=== PATIENT | male | born 1980 | race Caucasian/White ===

== ENCOUNTER 2016-08-27 20:34 | Emergency (ER) | payer BC ==
[2016-08-27] MEDS ORDERED: HYDROcodone/APAP 5-325MG 1 EACH TAB PO STA (21:30)
--- NOTE | 2016-08-27 22:02 | CT ---
EXAMINATION TYPE: CT brain wo con DATE OF EXAM: 08/27/2016 COMPARISON: NONE HISTORY: HEAD INJURY FROM BASEBALL. CT DLP: 961 mGycm. Automated Exposure Control for Dose Reduction was Utilized. TECHNIQUE: CT scan of the head is performed without contrast. FINDINGS: There is no acute intracranial hemorrhage, mass effect, or midline shift identified. The ventricles and sulci are within normal limits in size. The globes are intact and the visualized sin uses are clear. Cerebellar tonsils extend through the foramen magnum. Soft tissue swelling over the f rontal region. IMPRESSION: No acute intracranial hemorrhage, mass effect, or midline shift is seen. Inferior cerebe llar tonsillar ectopia may be present but is incompletely evaluated, brain MRI could be performed for additional evaluation.
--- NOTE | 2016-08-27 22:04 | CT ---
EXAMINATION TYPE: CT facial bones wo con DATE OF EXAM: 08/27/2016 COMPARISON: CT brain same date HISTORY: HEAD INJURY FROM BASEBALL CT DLP: 648. mGycm Automated exposure control for dose reduction was used. TECHNIQUE: CT scan of the sinuses is performed without contrast, axial images are obtained, coronal r eformatted images are also reviewed. FINDINGS: The paranasal sinuses including the frontal, ethmoid, sphenoid, and maxillary sinuses bila terally are well-aerated without abnormal opacification. The ostiomeatal complex is patent bilateral ly on the coronal images. Visualized portion of mastoid air cells show no abnormal opacification. The globes are intact bilate rally. Soft tissue swelling is noted over the frontal region as noted on CT. IMPRESSION: The sinuses are clear and the ostiomeatal complex is patent bilaterally. No acute fractur e or dislocation.
--- NOTE | 2016-08-27 22:09 | ED ---
Head Injury HPI - General Chief complaint: Head Injury Stated complaint: Head Injury Time Seen by Provider: 08/27/16 21:14 Source: patient Mode of arrival: ambulatory Limitations: no limitations - History of Present Illness Initial comments: Patient is a 35-year-old male who presents with a chief complaint of a head injury. Patient was hit in the face with a softball while playing in a game. He states that the ball was thrown to home plate, bounced off of another player' s helmet, and hit him in the forehead between the eyes. Patient states that he did not lose consciousness. He remembers the entire event. Currently he is complaining of a headache, and facial pain. Patient cannot describe any aggravating or alleviating factors. Timing is constant. Patient denies lightheadedness, dizziness, visual changes, pain with movement of the eyes, nasal hemorrhage, trouble breathing. MD Complaint: head injury, head pain Onset/Timin -: hour(s) Mechanism of Injury: sports related injury (Hit in the face with a softball) Location: frontal Loss of Consciousness: no Previous Trauma to this Area: No Place: outdoors Radiation: none Severity: moderate Quality: aching Consistency: constant Provoking factors: none known Other Injuries: none Associated Symptoms: denies other symptoms - Related Data Home Medications Medication Instructions Recorded Confirmed Dextroamphetamine/Amphetamine 20 mg PO BID 08/27/16 08/27/16 [Adderall] Previous Rx's Medication Instructions Recorded HYDROcodone/APAP 5-325MG [[place] 1 tab PO Q4HR PRN #5 tab 08/27/16 5-325] Naproxen 500 mg PO TID PRN #20 tablet 08/27/16 Allergies/Adverse reactions: Allergies Allergy/AdvReac Type Severity Reaction Status Date / Time No Known Allergies Allergy Verified 08/27/16 20:47 Review of Systems ROS Statement: Those systems with pertinent positive or pertinent negative responses have been documented in the HPI. Patient denies dizziness, lightheadedness, visual changes, pain with extraocular movement, jaw pain, pain with movement of the jaw, shortness of breath, chest pain, abdominal pain, nausea, vomiting, loss of consciousness, dysuria, constipation, diarrhea ROS Other: All systems not noted in ROS Statement are negative. Past Medical History Additional Past Medical History / Comment(s): pilonidal cyst History of Any Multi-Drug Resistant Organisms: None Reported Past Surgical History: Orthopedic Surgery Additional Past Surgical History / Comment(s): knee surgery, pilonidal cyst Past Psychological History: No Psychological Hx Reported Smoking Status: Current every day smoker Past Alcohol Use History: None Reported Past Drug Use History: None Reported General Exam Limitations: no limitations General appearance: alert, in no apparent distress Head exam: Present: other (Patient has erythema and swelling between the eyes extending to the nasal bridge. There are no gross deformities. There are no lacerations or abrasions. Patient is moderately tender to palpation at the bridge of the nose. There is no proptosis, or pain with extraocular movement.) ENT exam: Present: normal oropharynx, mucous membranes moist, TM's normal bilaterally, normal external ear exam, other (There is no septal hematoma, or otorrhea) Neck exam: Present: normal inspection Respiratory exam: Present: normal lung sounds bilaterally Cardiovascular Exam: Present: regular rate, normal rhythm GI/Abdominal exam: Present: soft Rectal exam: Present: deferred Extremities exam: Present: normal inspection, full ROM Back exam: Present: normal inspection Neurological exam: Present: alert, oriented X3 Psychiatric exam: Present: normal affect, normal mood Skin exam: Present: warm, dry, intact Course Vital Signs 08/27/16 20:36 Temperature 98.7 F Pulse Rate 84 Respiratory 18 Rate Blood Pressure 127/70 O2 Sat by Pulse 98 Oximetry Medical Decision Making - Medical Decision Making Patient presents with a chief complaint of a head injury after getting hit in the face with a softball during a softball game. Patient denies loss of consciousness, and remembers the entire event. The patient does not have any gross deformities of the face or nose. He does not have any pain with extraocular movement. There is no otorrhea, brown sign, or septal hematoma. Tympanic membranes appear to be normal. Patient will have a CT of the head, and facial bones. Patient was given one [place] for pain control and the emergency department. 10:[address] evaluation of the head and facial bones do not show any acute process. There is no focal hemorrhage, or mass effect. Facial bones appear to be intact. There is some soft tissue edema over the frontal bones consistent with exam. On reexamination, patient remained stable. Vital signs are within normal limits. Patient's neurologic exam is unchanged. The was prescribed naproxen, and 5 [place] tablets for pain control. He was instructed to not operate machinery, or drive if he is going to take the [place]. Patient was offered a work note however he declined at this time. Patient is stable for discharge. She was instructed on signs and symptoms that should be concerning and prompted return to the emergency department. He has stated understanding. Patient is instructed to follow-up with primary care in 3 to 5 days. Disposition Clinical Impression: Closed head injury, Concussion without loss of consciousness Disposition: HOME SELF-CARE Condition: Good Instructions: Concussion (ED) Prescriptions: HYDROcodone/APAP 5-325MG [[place] 5-325] 1 tab PO Q4HR PRN #5 tab PRN Reason: Pain Naproxen 500 mg PO TID PRN #20 tablet PRN Reason: Pain Referrals: Juan Gardiner DO [Primary Care Provider] - 1-2 days
[2016-08-27 22:50] VITALS: BP 123/59; PULSE 97; RESP 14; TEMP 98.3
== END 2016-08-27 22:50 | disposition home or self-care (01) ==
LOC: EC 20:34
DX: S06.0X0A Concussion without loss of consciousness, initial encounter (principal); F17.200 Nicotine dependence, unspecified, uncomplicated; Z79.899 Other long term (current) drug therapy; W21.07XA Struck by softball, initial encounter; Y93.64 Activity, baseball; Y92.89 Other specified places as the place of occurrence of the external cause
CPT/HCPCS: 70450; 70486; 99283

== ENCOUNTER → 2016-11-26 | Outpatient (CLI) | payer BC | LOC: RADMRIMAIN 18:20 | PROVIDERS: ATTEND Family Medicine | DX: Z53.9 Procedure and treatment not carried out, unspecified reason (principal) ==

== ENCOUNTER 2016-12-09 21:58 | Emergency (ER) | payer BC ==
[2016-12-09 22:14] VITALS: TEMP 97.7
[2016-12-09] MEDS ORDERED: KETOROLAC 30 MG/ML 1 ML VIAL IVP STA (22:49)
[2016-12-09] MEDS ORDERED: SODIUM CHLORIDE 0.9% 1,000 ML IV STA ×2 (22:49)
[2016-12-09] MEDS ORDERED: FAMOTIDINE 20 MG/2 ML VIAL IV STA (22:50)
--- NOTE | 2016-12-09 22:53 | ED ---
Abdominal Pain HPI - General Chief Complaint: Abdominal Pain Stated Complaint: Abd Pain Time Seen by Provider: 12/09/16 22:36 Source: patient, family, RN notes reviewed Mode of arrival: ambulatory Limitations: no limitations - History of Present Illness Initial Comments: This is a 36-year-old male with a benign past medical history states she's had midepigastric pain for over a week. He states it squeezing in nature currently is 6/10 but when he tries to swallow food gets up 8/10. He's had nausea with it no overt vomiting no diarrhea he's had no fevers chills sweats no cough or difficulty breathing. Of note he does have a family history of a mother and sister who have had gallbladder disease with cholecystectomy. He has a prior procedure. He is not a drinker of alcohol does not consume large was a coffee or tea he does drink soda pop. The patient patient does state he does a lot of lifting at work lifting 70 pound items. 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 MD Complaint: abdominal pain - Related Data Home Medications Medication Instructions Recorded Confirmed Dextroamphetamine/Amphetamine 20 mg PO BID 08/27/16 12/09/16 [Adderall] HYDROcodone/IBUPROFEN 7.5-200 1 tab PO BID PRN 12/09/16 12/09/16 [Vicoprofen 7.5-200 mg] Previous Rx's Medication Instructions Recorded Diclofenac Sodium/Misoprostol 1 each PO AC-TID #20 tab.ir.dr 12/10/16 [Arthrotec 75 mg-200 Mcg Tab] Allergies Allergy/AdvReac Type Severity Reaction Status Date / Time No Known Allergies Allergy Verified 12/09/16 22:49 Review of Systems ROS Statement: Those systems with pertinent positive or pertinent negative responses have been documented in the HPI. ROS Other: All systems not noted in ROS Statement are negative. Past Medical History Additional Past Medical History / Comment(s): pilonidal cyst History of Any Multi-Drug Resistant Organisms: None Reported Past Surgical History: Orthopedic Surgery Additional Past Surgical History / Comment(s): knee surgery, pilonidal cyst Past Psychological History: No Psychological Hx Reported Smoking Status: Current every day smoker Past Alcohol Use History: None Reported Past Drug Use History: None Reported General Exam - General Exam Comments Initial Comments: This is a well-developed well-nourished awake alert oriented 3 male Limitations: no limitations General appearance: alert, in no apparent distress Head exam: Present: atraumatic, normocephalic, normal inspection Eye exam: Present: normal appearance, PERRL, EOMI. Absent: scleral icterus, conjunctival injection, periorbital swelling ENT exam: Present: normal exam, mucous membranes moist Neck exam: Present: normal inspection. Absent: tenderness, meningismus, lymphadenopathy Respiratory exam: Present: normal lung sounds bilaterally, chest wall tenderness (Tenderness palpation over the xiphoid.). Absent: respiratory distress, wheezes, rales, rhonchi, stridor Cardiovascular Exam: Present: regular rate, normal rhythm, normal heart sounds. Absent: systolic murmur, diastolic murmur, rubs, gallop, clicks GI/Abdominal exam: Present: soft, tenderness, normal bowel sounds. Absent: distended, guarding, rebound, rigid, bruit (Epigastric tenderness palpation no overt guarding or rebound. Some mild right upper quadrant tenderness palpation no McBurney point tenderness), pulsatile mass, hernia, other Rectal exam: Present: deferred Extremities exam: Present: normal inspection, full ROM, normal capillary refill. Absent: tenderness, pedal edema, joint swelling, calf tenderness Back exam: Present: normal inspection Neurological exam: Present: alert, oriented X3, CN II-XII intact Psychiatric exam: Present: normal affect, normal mood Skin exam: Present: warm, dry, intact, normal color. Absent: rash Course Vital Signs 12/09/16 12/09/16 12/10/16 22:11 23:15 00:05 Temperature 97.7 F Pulse Rate 67 70 70 Respiratory 16 18 18 Rate Blood Pressure 119/63 121/60 119/72 O2 Sat by Pulse 99 99 99 Oximetry Medical Decision Making - Medical Decision Making Patient did get relief of some of the discomfort after the GI cocktail. He still had xiphoid discomfort. He did receive IV dye a lot of which should help with pain. I did a long discussion with him and his regarding findings patient will be discharged with follow-up with his doctor return when necessary he was given a note for work. The presentation is consistent with both gastritis and xiphodynia - Lab Data Result diagrams: 12/09/16 23:05 12/09/16 23:05 Lab Results 12/09/16 12/09/16 12/09/16 Range/Units 23:05 23:05 23:05 WBC 9.9 (3.8-10.6) k/uL RBC 4.28 L (4.30-5.90) m/uL Hgb 14.4 (13.0-17.5) gm/dL Hct 42.0 (39.0-53.0) % MCV 98.2 (80.0-100.0) fL MCH 33.8 (25.0-35.0) pg MCHC 34.4 (31.0-37.0) g/dL RDW 12.4 (11.5-15.5) % Plt Count 250 (150-450) k/uL Neutrophils % 64 % Lymphocytes % 26 % Monocytes % 5 % Eosinophils % 3 % Basophils % 1 % Neutrophils # 6.4 (1.3-7.7) k/uL Lymphocytes # 2.6 (1.0-4.8) k/uL Monocytes # 0.5 (0-1.0) k/uL Eosinophils # 0.2 (0-0.7) k/uL Basophils # 0.1 (0-0.2) k/uL Sodium 141 (137-145) mmol/L Potassium 3.9 (3.5-5.1) mmol/L Chloride 105 (98-107) mmol/L Carbon Dioxide 25 (22-30) mmol/L Anion Gap 11 mmol/L BUN 12 (9-20) mg/dL Creatinine 0.70 (0.66-1.25) mg/dL Est GFR (MDRD) Af Amer >60 (>60 ml/min/1.73 sqM) Est GFR (MDRD) Non-Af >60 (>60 ml/min/1.73 sqM) Glucose 106 H (74-99) mg/dL Plasma Lactic Acid Guerrero 1.5 (0.7-2.0) mmol/L Calcium 9.4 (8.4-10.2) mg/dL Total Bilirubin 0.4 (0.2-1.3) mg/dL AST 28 (17-59) U/L ALT 36 (21-72) U/L Alkaline Phosphatase 80 (38-126) U/L Total Protein 7.3 (6.3-8.2) g/dL Albumin 4.3 (3.5-5.0) g/dL Amylase 49 (30-110) U/L Lipase 82 (23-300) U/L Urine Color Urine Appearance (Clear) Urine pH (5.0-8.0) Ur Specific [place] (1.001-1.035) Urine Protein (Negative) Urine Glucose (UA) (Negative) Urine Ketones (Negative) Urine Blood (Negative) Urine Nitrite (Negative) Urine Bilirubin (Negative) Urine Urobilinogen (<2.0) mg/dL Ur Leukocyte Esterase (Negative) 12/09/16 Range/Units 23:20 WBC (3.8-10.6) k/uL RBC (4.30-5.90) m/uL Hgb (13.0-17.5) gm/dL Hct (39.0-53.0) % MCV (80.0-100.0) fL MCH (25.0-35.0) pg MCHC (31.0-37.0) g/dL RDW (11.5-15.5) % Plt Count (150-450) k/uL Neutrophils % % Lymphocytes % % Monocytes % % Eosinophils % % Basophils % % Neutrophils # (1.3-7.7) k/uL Lymphocytes # (1.0-4.8) k/uL Monocytes # (0-1.0) k/uL Eosinophils # (0-0.7) k/uL Basophils # (0-0.2) k/uL Sodium (137-145) mmol/L Potassium (3.5-5.1) mmol/L Chloride (98-107) mmol/L Carbon Dioxide (22-30) mmol/L Anion Gap mmol/L BUN (9-20) mg/dL Creatinine (0.66-1.25) mg/dL Est GFR (MDRD) Af Amer (>60 ml/min/1.73 sqM) Est GFR (MDRD) Non-Af (>60 ml/min/1.73 sqM) Glucose (74-99) mg/dL Plasma Lactic Acid Guerrero (0.7-2.0) mmol/L Calcium (8.4-10.2) mg/dL Total Bilirubin (0.2-1.3) mg/dL AST (17-59) U/L ALT (21-72) U/L Alkaline Phosphatase (38-126) U/L Total Protein (6.3-8.2) g/dL Albumin (3.5-5.0) g/dL Amylase (30-110) U/L Lipase (23-300) U/L Urine Color Yellow Urine Appearance Clear (Clear) Urine pH 5.5 (5.0-8.0) Ur Specific [place] 1.008 (1.001-1.035) Urine Protein Negative (Negative) Urine Glucose (UA) Negative (Negative) Urine Ketones Negative (Negative) Urine Blood Negative (Negative) Urine Nitrite Negative (Negative) Urine Bilirubin Negative (Negative) Urine Urobilinogen <2.0 (<2.0) mg/dL Ur Leukocyte Esterase Negative (Negative) - Radiology Data Radiology results: report reviewed, image reviewed (I did review the imaging and reports no acute findings.) Disposition Clinical Impression: Gastritis, Xiphodynia Disposition: HOME SELF-CARE Condition: Good Instructions: Gastritis (ED), Chest Wall Pain (ED) Prescriptions: Diclofenac Sodium/Misoprostol [Arthrotec 75 mg-200 Mcg Tab] 1 each PO AC-TID # 20 tab.ir.dr Referrals: Juan Gardiner DO [Primary Care Provider] - 1-2 days
[2016-12-09 23:19] LABS: CHCM 35.2; HGB 14.4 gm/dL (13.0-17.5)
[2016-12-09 23:34] LABS: ALT 36 U/L (21-72); AST 28 U/L (17-59); Alkaline Phosphatase 80 U/L (38-126); Amylase 49 U/L (30-110); Anion Gap 11 mmol/L; Blood Urea Nitrogen 12 mg/dL (9-20); Calcium 9.4 mg/dL (8.4-10.2); Carbon Dioxide 25 mmol/L (22-30); Chloride 105 mmol/L (98-107); Glucose 106 mg/dL (74-99); Non-African American GFR(MDRD) >60 (>60 ml/min/1.73 sqM); Potassium 3.9 mmol/L (3.5-5.1); Sodium 141 mmol/L (137-145); Total Bilirubin 0.4 mg/dL (0.2-1.3); Total Protein 7.3 g/dL (6.3-8.2)
[2016-12-09 23:48] LABS: Appearance,Urine Clear (Clear); Bilirubin,Urine Negative (Negative); Glucose,Urine (UA) Negative (Negative); Ketones,Urine Negative (Negative); Leukocyte Esterase,Urine Negative (Negative); Nitrite,Urine Negative (Negative); PH, Urine 5.5 (5.0-8.0); Protein,Urine Negative (Negative); Specific Gravity,Urine 1.008 (1.001-1.035); UA Billing (MACRO vs. MICRO) CHEM; Urobilinogen,Urine <2.0 mg/dL (<2.0)
[2016-12-09 23:50] LABS: Basophils # (A) 0.1 k/uL (0-0.2); Basophils % (A) 1 %; CH 34.4; Eosinophils # (A) 0.2 k/uL (0-0.7); Eosinophils % (A) 3 %; HDW 2.41; Luc # (Auto) 0.12; Luc % (Auto) 1; Lymphocytes # (A) 2.6 k/uL (1.0-4.8); Lymphocytes % (A) 26 %; MCH 33.8 pg (25.0-35.0); MCHC 34.4 g/dL (31.0-37.0); MCV 98.2 fL (80.0-100.0); Mean Platelet Volume 7.8; Monocytes # (A) 0.5 k/uL (0-1.0); Monocytes % (A) 5 %; Neutrophils # (A) 6.4 k/uL (1.3-7.7); Neutrophils % (A) 64 %; RBC 4.28 m/uL (4.30-5.90); RDW 12.4 % (11.5-15.5); WBC 9.9 k/uL (3.8-10.6); WBC (Perox) 10.14
--- NOTE | 2016-12-09 23:59 | XR ---
EXAMINATION TYPE: XR chest 2V DATE OF EXAM: 12/09/2016 COMPARISON: 04/01/2011 HISTORY: Chest pain TECHNIQUE: Frontal and lateral views of the chest are obtained. FINDINGS: Heart and mediastinum are normal. Lungs are clear. Diaphragm is normal. Bony thorax is int act. Pulmonary vascularity is normal. IMPRESSION: Normal chest. No change.
--- NOTE | 2016-12-10 | XR ---
EXAMINATION TYPE: XR abdomen 2V DATE OF EXAM: 12/09/2016 COMPARISON: 03/07/2012 HISTORY: Abdominal pain TECHNIQUE: 2 views FINDINGS: Bowel gas pattern is normal. There is no sign of intestinal obstruction or pneumoperitoneum . Fecal pattern is normal. There is no sign of a mass. IMPRESSION: Nonacute abdomen. No change.
[2016-12-10] MEDS ORDERED: MAG HYDROX/AL HYDROX/SIMETH 30 ML, HYOSCYAMINE ELIXIR 10 ML, CIMETIDINE HCL 300 MG, LID... PO STA ×4 (00:05)
[2016-12-10] MEDS ORDERED: HYDROmorphone 1 MG/ML 1 ML SYRINGE IVP STA (00:59)
[2016-12-10 01:59] VITALS: BP 115/56; PULSE 56; RESP 16
== END 2016-12-10 01:59 | disposition home or self-care (01) ==
LOC: EC 21:58
DX: K29.70 Gastritis, unspecified, without bleeding (principal); M85.88 Other specified disorders of bone density and structure, other site; F17.200 Nicotine dependence, unspecified, uncomplicated; Z79.899 Other long term (current) drug therapy
CPT/HCPCS: 36415; 80053; 82150; 83605; 83690; 85025; 81003; 71020; 74020; 99284; 96374; 96375 ×2; 96361 ×2; J1885; J1170

== ENCOUNTER 2017-09-27 20:36 | Emergency (ER) | payer BC ==
[2017-09-27 20:55] VITALS: RESP 18
--- NOTE | 2017-09-27 21:08 | ED ---
General Adult HPI - General Chief complaint: Chest Pain Stated complaint: Chest burning Time Seen by Provider: 09/27/17 21:00 Source: patient Mode of arrival: ambulatory Limitations: no limitations - History of Present Illness Initial comments: 36-year-old male presenting to the ED with 2-3 week history of epigastric and retrosternal discomfort after eating. Patient reports that after eating he has epigastric burning as well as a feeling of food coming back up into his esophagus. Patient reports at times he can feel the food and taste in the back of his throat. He denies any nausea or vomiting patient reports he does while eating soft foods such as yogurt or applesauce however anything solid he eats makes his symptoms worse. When the symptoms occur nothing makes it better aside from waiting for it to pass. Symptoms are not associated with any chest pressure, exertional symptoms, shortness of breath, diaphoresis or lightheadedness. He does have a history of GERD and was previously on PPIs intermittently but does report he hasn't been taking them regularly. He has never seen a director of planning or had an upper GI series. He is occur every day smoker. He has no known cardiac or known family history of early cardiac disease. Patient denies fevers, chills, nausea, vomiting, exertional chest pain, shortness of breath, change in bowel or bladder habits. He hasn't weighed himself but states that he doesn't believe he has lost weight due to not eating. - Related Data Home Medications Medication Instructions Recorded Confirmed Dextroamphetamine/Amphetamine 20 mg PO BID 08/27/16 12/09/16 [Adderall] HYDROcodone/IBUPROFEN 7.5-200 1 tab PO BID PRN 12/09/16 12/09/16 [Vicoprofen 7.5-200 mg] Previous Rx's Medication Instructions Recorded Diclofenac Sodium/Misoprostol 1 each PO AC-TID #20 tab.ir. 12/10/16 [Arthrotec 75 mg-200 Mcg Tab] Pantoprazole [Protonix] 40 mg PO DAILY #30 tablet. 09/27/17 Allergies Allergy/AdvReac Type Severity Reaction Status Date / Time No Known Allergies Allergy Verified 09/27/17 20:55 Review of Systems ROS Statement: Those systems with pertinent positive or pertinent negative responses have been documented in the HPI. ROS Other: All systems not noted in ROS Statement are negative. Past Medical History Additional Past Medical History / Comment(s): pilonidal cyst History of Any Multi-Drug Resistant Organisms: None Reported Past Surgical History: Orthopedic Surgery Additional Past Surgical History / Comment(s): knee surgery, pilonidal cyst Past Psychological History: No Psychological Hx Reported Smoking Status: Current every day smoker Past Alcohol Use History: None Reported Past Drug Use History: None Reported General Exam Limitations: no limitations General appearance: alert, in no apparent distress Head exam: Present: atraumatic, normocephalic Eye exam: Present: normal appearance, PERRL ENT exam: Present: normal exam, mucous membranes moist, other (No abnormality noted in the mouth, no evidence of candidiasis or infection. No aphthous ulcers or mucosal abnormalities noted.) Neck exam: Present: normal inspection Respiratory exam: Present: normal lung sounds bilaterally. Absent: respiratory distress, wheezes, rales, chest wall tenderness, accessory muscle use Cardiovascular Exam: Present: regular rate, normal rhythm, normal heart sounds. Absent: systolic murmur, diastolic murmur GI/Abdominal exam: Present: soft, normal bowel sounds. Absent: distended, tenderness, guarding, rebound, rigid, pulsatile mass Rectal exam: Present: deferred Extremities exam: Present: normal inspection Back exam: Present: normal inspection, full ROM Neurological exam: Present: alert, oriented X3 Psychiatric exam: Present: normal affect, normal mood Skin exam: Present: warm, dry, intact Course Vital Signs 09/27/17 09/27/17 20:53 22:52 Temperature 98.2 F 97.9 F Pulse Rate 89 75 Respiratory 18 18 Rate Blood Pressure 152/82 115/64 O2 Sat by Pulse 98 99 Oximetry - Reevaluation(s) Reevaluation #1: resting, was updated on findings. Had an extensive discussion regarding the need to follow up with gastroenterology. 09/27/17 22:40 EKG Findings - EKG Comments: EKG Findings:: EKG obtained at 2115 - rate is 84, rhythm is sinus, axis, normal intervals, AK 142, QRS 92, QTc 446, there are no acute ST elevations or depressions. There is no evidence of acute ischemia or infarction. Medical Decision Making - Medical Decision Making 36-year-old male with no cardiac history presenting with 2-3 weeks of burning epigastric pain and regurgitation after eating Patient able to tolerate solids and liquids though his symptoms are exacerbated by solid foods. No symptoms concerning for cardiac etiology of complaint, however I will obtain an EKG chest x-ray and basic labs GI cocktail ordered EKG was sinus rhythm with no acute ST elevations or depressions no evidence of acute ischemia or infarction Chest x-ray was unremarkable Labs and imaging were unremarkable, patient reported no improvement with GI cocktail and states that it made him feel that he could taste the vomiting is now more At this time I feel the patient suffering from very severe acid reflux. I discussed dietary modifications. Including eating small meals, sitting up after meals, not drinking too much fluids with meals. Avoidance of alcohol, spicy or greasy foods. Also advised patient that he needs to start a PPI and take it daily not as needed and follow-up with PCP and gastroenterology. Patient was given a referral to gastroenterology. All questions pertaining care were answered best my ability patient was discharged home in stable condition. - Lab Data Result diagrams: 09/27/17 21:05 09/27/17 21:05 Lab Results 09/27/17 09/27/17 09/27/17 Range/Units 21:05 21:05 21:05 WBC 11.9 H (3.8-10.6) k/uL RBC 4.36 (4.30-5.90) m/uL Hgb 14.1 (13.0-17.5) gm/dL Hct 41.4 (39.0-53.0) % MCV 95.1 (80.0-100.0) fL MCH 32.4 (25.0-35.0) pg MCHC 34.1 (31.0-37.0) g/dL RDW 12.0 (11.5-15.5) % Plt Count 265 (150-450) k/uL Neutrophils % 57 % Lymphocytes % 30 % Monocytes % 7 % Eosinophils % 3 % Basophils % 1 % Neutrophils # 6.8 (1.3-7.7) k/uL Lymphocytes # 3.6 (1.0-4.8) k/uL Monocytes # 0.8 (0-1.0) k/uL Eosinophils # 0.3 (0-0.7) k/uL Basophils # 0.1 (0-0.2) k/uL PT 10.2 (9.0-12.0) sec INR 1.0 (<1.2) APTT 26.1 (22.0-30.0) sec Sodium 140 (137-145) mmol/L Potassium 4.1 (3.5-5.1) mmol/L Chloride 105 (98-107) mmol/L Carbon Dioxide 27 (22-30) mmol/L Anion Gap 8 mmol/L BUN 11 (9-20) mg/dL Creatinine 0.90 (0.66-1.25) mg/dL Est GFR (CKD-EPI)AfAm >90 (>60 ml/min/1.73 sqM) Est GFR (CKD-EPI)NonAf >90 (>60 ml/min/1.73 sqM) Glucose 90 (74-99) mg/dL Calcium 9.3 (8.4-10.2) mg/dL Magnesium 2.2 (1.6-2.3) mg/dL Total Bilirubin 0.4 (0.2-1.3) mg/dL AST 28 (17-59) U/L ALT 32 (21-72) U/L Alkaline Phosphatase 77 (38-126) U/L Troponin I (0.000-0.034) ng/mL Total Protein 7.0 (6.3-8.2) g/dL Albumin 4.3 (3.5-5.0) g/dL Lipase 60 (23-300) U/L 09/27/17 Range/Units 21:05 WBC (3.8-10.6) k/uL RBC (4.30-5.90) m/uL Hgb (13.0-17.5) gm/dL Hct (39.0-53.0) % MCV (80.0-100.0) fL MCH (25.0-35.0) pg MCHC (31.0-37.0) g/dL RDW (11.5-15.5) % Plt Count (150-450) k/uL Neutrophils % % Lymphocytes % % Monocytes % % Eosinophils % % Basophils % % Neutrophils # (1.3-7.7) k/uL Lymphocytes # (1.0-4.8) k/uL Monocytes # (0-1.0) k/uL Eosinophils # (0-0.7) k/uL Basophils # (0-0.2) k/uL PT (9.0-12.0) sec INR (<1.2) APTT (22.0-30.0) sec Sodium (137-145) mmol/L Potassium (3.5-5.1) mmol/L Chloride (98-107) mmol/L Carbon Dioxide (22-30) mmol/L Anion Gap mmol/L BUN (9-20) mg/dL Creatinine (0.66-1.25) mg/dL Est GFR (CKD-EPI)AfAm (>60 ml/min/1.73 sqM) Est GFR (CKD-EPI)NonAf (>60 ml/min/1.73 sqM) Glucose (74-99) mg/dL Calcium (8.4-10.2) mg/dL Magnesium (1.6-2.3) mg/dL Total Bilirubin (0.2-1.3) mg/dL AST (17-59) U/L ALT (21-72) U/L Alkaline Phosphatase (38-126) U/L Troponin I <0.012 (0.000-0.034) ng/mL Total Protein (6.3-8.2) g/dL Albumin (3.5-5.0) g/dL Lipase (23-300) U/L Disposition Clinical Impression: Gastroesophageal reflux disease Disposition: HOME SELF-CARE Condition: Good Instructions: Diet for Stomach Ulcers and Gastritis (ED), Esophageal Spasm (ED) Prescriptions: Pantoprazole [Protonix] 40 mg PO DAILY #30 tablet.dr Is patient prescribed a controlled substance at d/c from ED?: No Referrals: Juan Gardiner DO [Primary Care Provider] - 1-2 days Paxton Trevizo MD [STAFF PHYSICIAN] - 1-2 days Time of Disposition: 22:42
[2017-09-27] MEDS ORDERED: SODIUM CHLORIDE 0.9% 1,000 ML IV STA (21:13)
[2017-09-27] MEDS ORDERED: MAG HYDROX/AL HYDROX/SIMETH 30 ML, HYOSCYAMINE ELIXIR 10 ML, CIMETIDINE HCL 300 MG, LID... PO STA ×4 (21:17)
[2017-09-27 21:38] LABS: Basophils # (A) 0.1 k/uL (0-0.2); Basophils % (A) 1 %; Eosinophils # (A) 0.3 k/uL (0-0.7); Eosinophils % (A) 3 %; HCT 41.4 % (39.0-53.0); HGB 14.1 gm/dL (13.0-17.5); Lymphocytes # (A) 3.6 k/uL (1.0-4.8); Lymphocytes % (A) 30 %; MCH 32.4 pg (25.0-35.0); MCHC 34.1 g/dL (31.0-37.0); MCV 95.1 fL (80.0-100.0); Mean Platelet Volume 7.2; Monocytes # (A) 0.8 k/uL (0-1.0); Monocytes % (A) 7 %; Neutrophils # (A) 6.8 k/uL (1.3-7.7); Neutrophils % (A) 57 %; Platelet Count 265 k/uL (150-450); RBC 4.36 m/uL (4.30-5.90); WBC 11.9 k/uL (3.8-10.6)
[2017-09-27 21:46] LABS: Partial Thromboplastin Time 26.1 sec (22.0-30.0); Prothrombin Time 10.2 sec (9.0-12.0)
[2017-09-27 21:47] LABS: ALT 32 U/L (21-72); AST 28 U/L (17-59); Albumin 4.3 g/dL (3.5-5.0); Alkaline Phosphatase 77 U/L (38-126); Anion Gap 8 mmol/L; Blood Urea Nitrogen 11 mg/dL (9-20); Calcium 9.3 mg/dL (8.4-10.2); Carbon Dioxide 27 mmol/L (22-30); Chloride 105 mmol/L (98-107); Glucose 90 mg/dL (74-99); Lipase 60 U/L (23-300); Magnesium 2.2 mg/dL (1.6-2.3); Potassium 4.1 mmol/L (3.5-5.1); Sodium 140 mmol/L (137-145); Total Bilirubin 0.4 mg/dL (0.2-1.3)
--- NOTE | 2017-09-27 22:01 | XR ---
EXAMINATION TYPE: XR chest 2V DATE OF EXAM: 09/27/2017 COMPARISON: 12/09/2016 INDICATION: Chest pain TECHNIQUE: Frontal and lateral views of the chest are obtained. FINDINGS: The heart size is normal. The pulmonary vasculature is normal. The lungs are clear. IMPRESSION: 1. No acute pulmonary process.
[2017-09-27] MEDS ORDERED: FAMOTIDINE 20 MG/2 ML VIAL IV STA (22:36)
[2017-09-27 22:54] VITALS: BP 115/64; PULSE 75; TEMP 97.9
== END 2017-09-27 23:01 | disposition home or self-care (01) ==
LOC: EC 20:36
DX: K21.9 Gastro-esophageal reflux disease without esophagitis (principal); F17.200 Nicotine dependence, unspecified, uncomplicated; Z79.899 Other long term (current) drug therapy
CPT/HCPCS: 36415; 71046; 80053; 83690; 83735; 84484; 85025; 85610; 85730; 93005; 96361; 96374; 99285

== ENCOUNTER 2017-11-03 07:09 | Day surgery (SDC) | payer BC ==
[2017-10-31 11:43] VITALS: BMI 25.9
[~2017-11-03 07:09] MED LIST: LACTATED RINGERS 1,000 ML IV SCH
[2017-11-03] MEDS ORDERED: LIDOCAINE 1% 20 ML VIAL (10MG/ML) FOR IV START INTRADERMA ONE (07:23)
[2017-11-03 07:24] VITALS: TEMP 98.1
[2017-11-03] MEDS ORDERED: LIDOCAINE 1% INJ 10MG/ML (20 ML MDV) ONE (08:27)
[2017-11-03] MEDS ORDERED: fentaNYL (PF) 50 MCG/ML 2 ML AMP ONE (08:27)
[2017-11-03] MEDS ORDERED: PROPOFOL 10 MG/ML 20 ML VIAL IV ONE (08:27)
[2017-11-03 08:47] VITALS: RESP 18
--- NOTE | 2017-11-03 08:51 | P.PCN ---
Date of Procedure: 11/03/17 Procedure(s) Performed: Procedure: Esophagogastroduodenoscopy and biopsy. Preoperative diagnosis: Dysphagia. Postoperative diagnosis: 1. Sliding hiatal hernia and LA grade B distal esophagitis but no strictures or Flores's esophagus. 2. Minimal antral gastritis. 3. Biopsies obtained from the duodenum, antrum and esophagus. Preparation and sedation: Was provided anesthesia. Brief clinical history: The patient is a 37-year-old male who is scheduled for this evaluation because of episodes of dysphagia and atypical chest pains that he has been experiencing for the last few months. He lost few pounds. He also complains of postprandial right upper abdominal pains. He was prescribed on PPI and he said it made him feel worse. This evaluation is to assess for esophagitis, complicated reflux disease, or other pathology. Procedure: With the patient on his left lateral decubitus position and after informed consent and adequate sedation, I passed the Olympus-GIF 160 video upper endoscope through the cricopharyngeus down the esophagus. GE junction was around 41 cm from the incisors and there was a sliding hiatal hernia measuring between 1 and 2 cm. The distal esophagus showed multiple superficial erosions consistent with LA grade B distal esophagitis but there were no strictures or Flores's esophagus. The endoscope was then passed into the stomach which was insufflated with air and inspected in detail including the retroflex view in the cardia. There was minimal mottling and erythema in the antrum but no ulcers or erosions. Pyloric channel, duodenal bulb, post bulbar area and descending duodenum appeared within normal limits. Because of his symptoms, I obtained biopsies from the duodenum, antrum and esophagus then the endoscope was withdrawn. The patient tolerated the procedure well. Plan: The patient was reassured. Will await biopsy results and make further plans based on his course and biopsy results. I will keep you updated on his progress.
[2017-11-03 09:23] VITALS: BP 125/69; PULSE 77
== END 2017-11-03 09:43 | disposition home or self-care (01) ==
LOC: ORWHC2ENDO 07:09
DX: K21.0 Gastro-esophageal reflux disease with esophagitis (principal); K29.50 Unspecified chronic gastritis without bleeding; K44.9 Diaphragmatic hernia without obstruction or gangrene; F90.9 Attention-deficit hyperactivity disorder, unspecified type; F17.210 Nicotine dependence, cigarettes, uncomplicated; Z79.899 Other long term (current) drug therapy
CPT/HCPCS: 88305; 43239; J2001; J3010; J2704

== ENCOUNTER 2017-11-12 00:34 | Emergency (ER) | payer BC ==
[2017-11-12 00:46] VITALS: PULSE 67
[2017-11-12] MEDS ORDERED: MAG HYDROX/AL HYDROX/SIMETH 30 ML, HYOSCYAMINE ELIXIR 10 ML, CIMETIDINE HCL 300 MG, LID... PO STA ×4 (01:07)
[2017-11-12 01:51] LABS: Basophils # (A) 0.1 k/uL (0-0.2); Basophils % (A) 1 %; Eosinophils # (A) 0.3 k/uL (0-0.7); Eosinophils % (A) 2 %; HCT 42.9 % (39.0-53.0); HGB 14.1 gm/dL (13.0-17.5); Lymphocytes # (A) 3.8 k/uL (1.0-4.8); Lymphocytes % (A) 36 %; MCH 32.5 pg (25.0-35.0); MCHC 32.9 g/dL (31.0-37.0); MCV 98.7 fL (80.0-100.0); Mean Platelet Volume 6.8; Monocytes # (A) 0.6 k/uL (0-1.0); Monocytes % (A) 6 %; Neutrophils # (A) 5.8 k/uL (1.3-7.7); Neutrophils % (A) 54 %; Platelet Count 248 k/uL (150-450); RBC 4.35 m/uL (4.30-5.90); RDW 12.1 % (11.5-15.5); WBC 10.6 k/uL (3.8-10.6)
[2017-11-12 01:59] LABS: ALT 33 U/L (21-72); AST 28 U/L (17-59); Alkaline Phosphatase 68 U/L (38-126); Anion Gap 8 mmol/L; Blood Urea Nitrogen 15 mg/dL (9-20); Calcium 9.4 mg/dL (8.4-10.2); Carbon Dioxide 28 mmol/L (22-30); Chloride 104 mmol/L (98-107); Glucose 95 mg/dL (74-99); Lipase 95 U/L (23-300); Potassium 4.4 mmol/L (3.5-5.1); Sodium 140 mmol/L (137-145); Total Bilirubin 0.3 mg/dL (0.2-1.3); Total Protein 6.8 g/dL (6.3-8.2)
[2017-11-12 02:01] VITALS: BP 118/58; RESP 18
--- NOTE | 2017-11-12 02:20 | ED ---
General Adult HPI - General Chief complaint: Abdominal Pain Stated complaint: upper abd pain Time Seen by Provider: 11/12/17 00:51 Source: patient Mode of arrival: ambulatory Limitations: no limitations - History of Present Illness Initial comments: Lucas is a 37-year-old male who presents to the emergency department today for reevaluation of epigastric abdominal pain. Gerson reports that he is seen in our ER last month, he followed up with gastroenterology and had an endoscopy approximately one week ago. He reports that he was told he had a sliding hiatal hernia but no other findings at that time. He was advised to take Zantac twice daily which she has been doing. Patient also reports that he has attempted to make dietary modifications including cutting out most junk food, spicy and greasy food. Patient reports that despite doing this he still experiencing burning epigastric abdominal pain. Pain is worse with eating or with any palpation or deep breaths. Patient denies any alcohol ingestion or history of pancreatitis. Patient ports that today's abdominal discomfort was slightly worse, when he woke up to go to work he felt more uncomfortable and decided to come to ER for reevaluation. - Related Data Home Medications Medication Instructions Recorded Confirmed Dextroamphetamine/Amphetamine 20 mg PO DAILY 08/27/16 11/12/17 [Adderall] Previous Rx's Medication Instructions Recorded Sucralfate [Carafate] 1 gm PO ACHS #1 bottle 11/12/17 Allergies Allergy/AdvReac Type Severity Reaction Status Date / Time No Known Allergies Allergy Verified 11/03/17 07:20 Review of Systems ROS Statement: Those systems with pertinent positive or pertinent negative responses have been documented in the HPI. ROS Other: All systems not noted in ROS Statement are negative. Past Medical History Past Medical History: GERD/Reflux Additional Past Medical History / Comment(s): C/O BURNING IN CHEST/ABD, FEELS LIKE FOOD GETTING STUCK W/ SEVERE PAIN IN DIAPHRAGM; RECENT NAUSEA. History of Any Multi-Drug Resistant Organisms: None Reported Past Surgical History: Orthopedic Surgery Additional Past Surgical History / Comment(s): LT knee surgery, Pilonidal cyst Past Anesthesia/Blood Transfusion Reactions: No Reported Reaction Past Psychological History: No Psychological Hx Reported Smoking Status: Current every day smoker Past Alcohol Use History: None Reported Past Drug Use History: None Reported - Past Family History Father Family Medical History: Cancer Additional Family Medical History / Comment(s): ORAL CA General Exam - General Exam Comments Initial Comments: GENERAL: Patient is well-developed and well-nourished. Patient is nontoxic and well- hydrated and is in no distress. HENT: Normocephalic, Atraumatic. Neck is soft and supple. No significant lymphadenopathy is noted. Oropharynx is clear. Moist mucous membranes. Neck has full range of motion without eliciting any pain. EYES: The sclera were anicteric and conjunctiva were pink and moist. Extraocular movements were intact and pupils were equal round and reactive to light. Eyelids were unremarkable. PULMONARY: Unlabored respirations. Good breath sounds bilaterally. No audible rales rhonchi or wheezing was noted. CARDIOVASCULAR: There is a regular rate and rhythm without any murmurs gallops or rubs. ABDOMEN: Soft and nontender with normal bowel sounds. SKIN: Skin is clear with no lesions or rashes and otherwise unremarkable. NEUROLOGIC: Patient is alert and oriented x3. Cranial nerves II through XII are grossly intact. Motor and sensory are also intact. Normal speech, volume and content. Symmetrical smile. MUSCULOSKELETAL: Normal extremities with adequate strength and full range of motion. No lower extremity swelling or edema. No calf tenderness. LYMPHATICS: No significant lymphadenopathy is noted PSYCHIATRIC: Normal psychiatric evaluation. Limitations: no limitations Limitations: no limitations Course Vital Signs 11/12/17 11/12/17 00:42 01:58 Temperature 97.7 F Pulse Rate 67 67 Respiratory 20 18 Rate Blood Pressure 102/71 118/58 O2 Sat by Pulse 98 98 Oximetry Medical Decision Making - Medical Decision Making The patient was seen and evaluated, history was obtained from the patient, review of medical record and my previous encounter with the patient She with persistent epigastric abdominal discomfort, concerned about his sliding hiatal hernia Labs were ordered Labs no acute abnormalities Patient reports mild improvement with GI cocktail At this time I don't feel there is indication for urgent ultrasound of the gallbladder as there is no lab abnormalities, no tenderness to palpation in the right upper quadrant. The patient may have some gastritis GI as previously discussed with his GI specialist. In addition I will refer the patient to general surgery for discussion of end of his hiatal hernia. Patient and at bedside agreeable to this plan. All questions pertaining care were answered best my ability, return parameters were discussed the patient was discharged home in stable condition. - Lab Data Result diagrams: 11/12/17 01:12 11/12/17 01:12 Lab Results 11/12/17 11/12/17 Range/Units 01:12 01:12 WBC 10.6 (3.8-10.6) k/uL RBC 4.35 (4.30-5.90) m/uL Hgb 14.1 (13.0-17.5) gm/dL Hct 42.9 (39.0-53.0) % MCV 98.7 (80.0-100.0) fL MCH 32.5 (25.0-35.0) pg MCHC 32.9 (31.0-37.0) g/dL RDW 12.1 (11.5-15.5) % Plt Count 248 (150-450) k/uL Neutrophils % 54 % Lymphocytes % 36 % Monocytes % 6 % Eosinophils % 2 % Basophils % 1 % Neutrophils # 5.8 (1.3-7.7) k/uL Lymphocytes # 3.8 (1.0-4.8) k/uL Monocytes # 0.6 (0-1.0) k/uL Eosinophils # 0.3 (0-0.7) k/uL Basophils # 0.1 (0-0.2) k/uL Sodium 140 (137-145) mmol/L Potassium 4.4 (3.5-5.1) mmol/L Chloride 104 (98-107) mmol/L Carbon Dioxide 28 (22-30) mmol/L Anion Gap 8 mmol/L BUN 15 (9-20) mg/dL Creatinine 0.94 (0.66-1.25) mg/dL Est GFR (CKD-EPI)AfAm >90 (>60 ml/min/1.73 sqM) Est GFR (CKD-EPI)NonAf >90 (>60 ml/min/1.73 sqM) Glucose 95 (74-99) mg/dL Calcium 9.4 (8.4-10.2) mg/dL Total Bilirubin 0.3 (0.2-1.3) mg/dL AST 28 (17-59) U/L ALT 33 (21-72) U/L Alkaline Phosphatase 68 (38-126) U/L Total Protein 6.8 (6.3-8.2) g/dL Albumin 4.0 (3.5-5.0) g/dL Lipase 95 (23-300) U/L Disposition Clinical Impression: Abdominal pain Disposition: HOME SELF-CARE Instructions: Hiatal Hernia (ED), Hiatal Hernia (DC), Abdominal Pain (ED) Prescriptions: Sucralfate [Carafate] 1 gm PO ACHS #1 bottle Is patient prescribed a controlled substance at d/c from ED?: No Referrals: Juan Gardiner DO [Primary Care Provider] - 1-2 days Paxton Trevizo MD [STAFF PHYSICIAN] - 1-2 days Hosea Bui MD [STAFF PHYSICIAN] - 1-2 days Milton Alexander MD [Medical Doctor] - 1-2 days Peggy Vinson MD [STAFF PHYSICIAN] - 1-2 days
[2017-11-12 02:33] VITALS: TEMP 98.4
== END 2017-11-12 02:33 | disposition home or self-care (01) ==
LOC: EC 00:34
DX: R10.13 Epigastric pain (principal); F17.200 Nicotine dependence, unspecified, uncomplicated; Z79.899 Other long term (current) drug therapy
CPT/HCPCS: 36415; 80053; 83690; 85025; 99284

== ENCOUNTER → 2017-11-27 | Outpatient (CLI) | payer BC ==
--- NOTE | 2017-11-28 07:40 | CT ---
EXAMINATION TYPE: CT chest abdomen wo con DATE OF EXAM: 11/27/2017 INDICATION: Epigastric pain x 5 months. COMPARISON: None CT DLP: 393.2 mGycm CONTRAST: Performed with Oral Contrast. No intravenous contrast is utilized. TECHNIQUE: Axial images at 5 mm thick sections. Reconstructed images in the coronal plane. Delayed images through the kidneys. FINDINGS: CT CHEST: Portion of the thyroid visualized is normal. No suspicious lung nodules or focal infiltrates are present. No enlarged mediastinal or hilar adenopathy is evident. The ascending aorta diameter at the level of the main pulmonary artery is 3.2 cm. The main pulmonary artery diameter at the bifurcation is 2.6 cm. Some minimal reflux of contrast into the distal esophagus is noted. CT ABDOMEN: Liver: Normal Spleen: Normal Pancreas: Normal Adrenal glands: The adrenal glands are normal. Gallbladder: Normal Kidneys: No masses are evident. No hydronephrosis is present. No cysts are present. No renal stone s are evident. Aorta: Normal Inferior vena cava: Normal. Loops of bowel within the abdomen and pelvis are normal. There are loops of bowel which are incom pletely distended or lack oral contrast limiting their evaluation. Fecal debris is within the visuali zed colon IMPRESSIONS: 1. Unremarkable CT chest and abdomen. 2. Note is made of mild reflux into the distal esophagus during the exam.
== END ==
LOC: RADCTMAIN 17:00
DX: K21.9 Gastro-esophageal reflux disease without esophagitis (principal)
CPT/HCPCS: 71250; 74150

== ENCOUNTER 2019-12-21 13:18 | Emergency (ER) | payer BC ==
[2019-12-21 13:44] VITALS: BP 124/82; PULSE 94; RESP 18; TEMP 98.1
--- NOTE | 2019-12-21 15:25 | ED ---
URI HPI - General Chief Complaint: Upper Respiratory Infection Stated Complaint: Body Aches, Not feeling well Time Seen by Provider: 12/21/19 14:43 Source: patient, family Mode of arrival: ambulatory Limitations: no limitations - History of Present Illness Initial Comments: Patient is a 39-year-old male presenting to the emergency department complaints of flulike symptoms 2 days. Patient states his symptoms started at night with body aches and chills and then the next day developed a dry cough. He denies any chest pains, shortness of breath. He states he feels fatigued but is able to eat and drink as normal. He denies history of asthma, COPD. He is a smoker. He has not taken any Tylenol or Motrin today. He denies any sick contacts. He denies any nausea, vomiting, abdominal pain or diarrhea. He denies his loss of taste or smell. He has no further complaints at this time. Upon arrival to the ER his vital signs are stable. - Related Data Home Medications Medication Instructions Recorded Confirmed Dextroamphetamine/Amphetamine 20 mg PO DAILY 08/27/16 11/12/17 [Adderall] Previous Rx's Medication Instructions Recorded Sucralfate [Carafate] 1 gm PO ACHS #1 bottle 11/12/17 Allergies Allergy/AdvReac Type Severity Reaction Status Date / Time No Known Allergies Allergy Verified 12/21/19 13:44 Review of Systems ROS Statement: Those systems with pertinent positive or pertinent negative responses have been documented in the HPI. ROS Other: All systems not noted in ROS Statement are negative. Past Medical History Past Medical History: GERD/Reflux Additional Past Medical History / Comment(s): C/O BURNING IN CHEST/ABD, FEELS LIKE FOOD GETTING STUCK W/ SEVERE PAIN IN DIAPHRAGM; RECENT NAUSEA. History of Any Multi-Drug Resistant Organisms: None Reported Past Surgical History: Orthopedic Surgery Additional Past Surgical History / Comment(s): LT knee surgery, Pilonidal cyst Past Anesthesia/Blood Transfusion Reactions: No Reported Reaction Past Psychological History: No Psychological Hx Reported Smoking Status: Current every day smoker Past Alcohol Use History: None Reported Past Drug Use History: None Reported - Past Family History Father Family Medical History: Cancer Additional Family Medical History / Comment(s): ORAL CA General Exam - General Exam Comments Initial Comments: GENERAL: Patient is well-developed and well-nourished. Patient is nontoxic and in no acute distress. HEAD: Atraumatic, normocephalic. EYES: Pupils equal round and reactive to light, extraocular movements intact, sclera anicteric, conjunctiva are normal. Eyelids were unremarkable. ENT: TMs normal, nares patent, oropharynx clear without exudates. Moist mucous membranes. NECK: Normal range of motion, supple without lymphadenopathy or JVD. LUNGS: Unlabored respirations. Breath sounds clear to auscultation bilaterally and equal. No wheezes rales or rhonchi. HEART: Regular rate and rhythm without murmurs, rubs or gallops. ABDOMEN: Soft, nontender, normoactive bowel sounds. No guarding, no rebound. No masses appreciated. : Deferred MUSCULOSKELETAL: Normal extremities with adequate strength and normal range of motion, no pitting or edema. No clubbing or cyanosis. NEUROLOGICAL: Patient is alert and oriented x 3. Motor and sensory are also intact. Cranial nerves II through XII grossly intact. Symmetrical smile. Normal speech, normal gait. PSYCH: Normal mood, normal affect. SKIN: Warm, Dry, normal turgor, no rashes or lesions noted. Limitations: no limitations Course Vital Signs 12/21/19 13:40 Temperature 98.1 F Pulse Rate 94 Respiratory 18 Rate Blood Pressure 124/82 O2 Sat by Pulse 98 Oximetry Medical Decision Making - Medical Decision Making Patient is a 39-year-old male here for flulike symptoms for 2 days. His vital signs are stable here his exam is unremarkable. He denies history of asthma, COPD. Patient is able to eat and drink as normal. Given patient's symptoms did test him for Covid, this is pending. Flu is negative. He is stable for discharge. He can follow-up with his PCP. Return parameters were discussed with the patient he verbalizes understanding. - Lab Data Lab Results 12/21/19 Range/Units 15:28 Influenza Type A RNA Not Detected (Not Detectd) Influenza Type B (PCR) Not Detected (Not Detectd) Disposition Clinical Impression: Upper respiratory tract infection Disposition: HOME SELF-CARE Condition: Stable Instructions (If sedation given, give patient instructions): Upper Respiratory Infection (ED) Additional Instructions: Please return to the Emergency Department if symptoms worsen or any other concerns. Take ibuprofen or Tylenol for discomfort. COVID test is pending, this can take 48 hours. Follow-up with PCP Is patient prescribed a controlled substance at d/c from ED?: No Referrals: Juan Gardiner DO [Primary Care Provider] - 1-2 days
== END 2019-12-21 16:12 | disposition home or self-care (01) ==
LOC: EC 13:18
DX: U07.1 COVID-19 (principal); F17.200 Nicotine dependence, unspecified, uncomplicated
CPT/HCPCS: 87502; 99283; U0003